=== PATIENT | female | born 1975 | race Caucasian/White ===

== ENCOUNTER 2018-09-29 10:22 | Emergency (ER) | payer MEDICAID ==
[~2018-09-29] VITALS: Ht 160 cm; Wt 63.5 kg
--- NOTE | 2018-09-29 10:30 | NUR ---
is at bedside doing the MSE.
--- NOTE | 2018-09-29 10:40 | NUR ---
Patient ambulated to bathroom with brisk steady gait. Clean catch urine was requested. NAD.
[2018-09-29 10:47] LABS: BASOPHILS # (AUTO) 0.1 K/uL (0.0-8.0); EOSINOPHILS # (AUTO) 0.1 K/uL (0.0-0.7); EOSINOPHILS % (AUTO) 2.2 % (0.0-7.0); HEMATOCRIT 41.3 % (31.2-41.9); HEMOGLOBIN 14.2 g/dL (10.9-14.3); LYMPHOCYTES # (AUTO) 1.5 K/uL (20.0-40.0); LYMPHOCYTES % (AUTO) 27.9 % (20.5-51.5); MEAN CORPUSCULAR HEMOGLOBIN 30.8 uug (24.7-32.8); MEAN CORPUSCULAR HGB CONC 34 g/dL (32.3-35.6); MEAN CORPUSCULAR VOLUME 89.8 fL (75.5-95.3); MONOCYTES # (AUTO) 0.5 K/uL (2.0-10.0); MONOCYTES % (AUTO) 9.3 % (0.0-11.0); NEUTROPHILS # (AUTO) 3.2 K/uL (1.8-8.9); NEUTROPHILS % (AUTO) 59.6 % (38.5-71.5); PLATELET COUNT (AUTO) 173 K/uL (179-408); WHITE BLOOD COUNT (AUTO) 5.3 K/uL (3.8-11.8)
[2018-09-29 10:53] LABS: *URINE HCG, QUAL NEGATIVE (NEGATIVE)
[2018-09-29 10:54] LABS: CREATININE 0.7 mg/dL (0.6-1.3); POTASSIUM 4.5 mmol/L (3.5-5.1)
--- NOTE | 2018-09-29 10:55 | NUR ---
Extra warm blankets and lights dimmed for comfort, for U/S scan & lab tests results@this time.
[2018-09-29] MEDS ORDERED: KETOROLAC TROMETHAMINE 30 MG INJ IM ONE (11:30)
--- NOTE | 2018-09-29 11:34 | NUR ---
Patient discharged to home in stable conditon. Written and verbal after care instructions given to patient and spouse. Patient and spouse verbalized understanding of instructions.
[2018-09-29] MEDS ORDERED: KETOROLAC TROMETHAMINE 30 MG INJ ONE (12:28)
== END 2018-09-29 11:36 | disposition home or self-care (01) ==
LOC: ER 10:22
DX: M79.601 Pain in right arm (principal); M79.602 Pain in left arm; M79.661 Pain in right lower leg; R42 Dizziness and giddiness; E03.9 Hypothyroidism, unspecified; Z88.5 Allergy status to narcotic agent
CPT/HCPCS: 36415; 80048; 82550; 84703; 85025; 85379; 93005; 93971; 96372; 99285; J1885; A4663

== ENCOUNTER 2018-10-19 10:26 | Emergency (ER) | payer MEDICAID ==
[~2018-10-19] VITALS: Ht 162.6 cm; Wt 54.4 kg
[2018-10-19] MEDS ORDERED: ATORVASTATIN TAB 10MG (10:39)
[2018-10-19] MEDS ORDERED: NAPROXEN 375 MG (10:39)
[2018-10-19] MEDS ORDERED: LEVOTHYROXIN TAB 50MCG (10:39)
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
--- NOTE | 2018-10-19 11:38 | NUR ---
DC, RX (INCLUDING PRECAUTIONS) AND FOLLOW UP INSTRUCTIONS GIVEN AND EXPLAINED TO PATIENT WHO STATES SHE UNDERSTANDS ALL INSTRUCTIONS...
== END 2018-10-19 11:39 | disposition home or self-care (01) ==
LOC: ER 10:26
DX: S16.1XXA Strain of muscle, fascia and tendon at neck level, initial encounter (principal); E03.9 Hypothyroidism, unspecified; E78.5 Hyperlipidemia, unspecified; Z88.5 Allergy status to narcotic agent; V43.52XA Car driver injured in collision with other type car in traffic accident, initial encounter; Y93.89 Activity, other specified; Y92.89 Other specified places as the place of occurrence of the external cause; Y99.8 Other external cause status
CPT/HCPCS: 72125; A4663